=== PATIENT | female | born 1980 | race Caucasian/White ===

== ENCOUNTER 2018-07-05 13:41 | Inpatient (IN) | payer BC ==
[2018-07-06] MEDS ORDERED: Zolpidem Tartrate 5 MG TAB PO PRN (22:10)
[2018-07-06] MEDS ORDERED: Lidocaine 1% (PF) 30 ML VIAL SC PRN ×2 (22:10→22:13)
[2018-07-06] MEDS ORDERED: NS / Oxytocin 40 units/1000ml 1,000 ML IV PRN ×2 (22:10→22:13)
[2018-07-06] MEDS ORDERED: Promethazine HCl 25 MG/ML VIAL IM PRN (22:10)
[2018-07-06] MEDS ORDERED: Butorphanol Tartrate 1 MG/ML VIAL SLOW IVP PRN (22:10)
[2018-07-06] MEDS ORDERED: Acetaminophen 500 MG TAB PO PRN (22:10)
[2018-07-06] MEDS ORDERED: Ondansetron PF 4 MG/2 ML Vial IVP PRN (22:10)
[2018-07-06] MEDS: Lactated Ringer's 1,000 ML IV SCH (22:30)
[2018-07-06] MEDS ORDERED: Penicillin G Potassium 5 MILL.UNITS in Sodium Chloride 0.9% 100 ML IVPB SCH (23:00)
[2018-07-06 23:15] VITALS: BMI 32.2
[2018-07-06 23:25] LABS: Hemoglobin 11.3 g/dL (12.0-16.0); Mean Corpuscular HGB CONC 34.9 g/dL (32.0-36.0); Mean Corpuscular Hemoglobin 31.6 pg (27.0-31.0); Mean Corpuscular Volume 90.3 fL (78.0-98.0); Mean Platelet Volume 9.5 fL (7.4-10.4); Platelet Count 151 thou/uL (130-400); RBC Distribution Width 12.5 % (11.5-14.5); Red Blood Cell (RBC) Count 3.58 mill/uL (4.20-5.40); White Blood Cell (WBC) Count 6.4 thou/uL (4.8-10.8)
[2018-07-07 00:04] LABS: Syphilis Antibody Nonreactive (Nonreactive); Syphilis Antibody Index 0.05 S/CO (<1.00 Non-Reactive)
[2018-07-07] MEDS: Misoprostol 100 MCG TAB VAG SCH ×2 (00:07→08:14)
[2018-07-07 00:08] LABS: HBSAg Index 0.27 S/CO (0-0.99); Hep B Surf Ag Non-Reactive S/CO (NonReactive)
[2018-07-07] MEDS: Penicillin G 2.5 MILL.units 2.5 MILL.UNITS in Premix Bag 1 BAG IVPB SCH ×5 (04:30→16:10)
[2018-07-07] MEDS: NS w/ Oxytocin 10 units 500 ML IV SCH (06:00)
[2018-07-07] MEDS: Lactated Ringer's 1,000 ML IV SCH ×2 (06:01→12:16)
[2018-07-07] MEDS ORDERED: Fentanyl 4 mcg/Bup 0.1% Cadd 100 ML ONE ×2 (07:38→15:06)
[2018-07-07] MEDS ORDERED: ePHEDrine/0.9% NaCl/PF SYRINGE 50 mg/10 ml SLOW IVP PRN (08:11)
[2018-07-07] MEDS ORDERED: Eucerin (Mineral Oil/Petrolatum,White) 30 gm Jar TOP PRN ×2 (08:11→20:17)
[2018-07-07] MEDS ORDERED: Lactated Ringer's 500 ML IV PRN (08:11)
[2018-07-07] MEDS ORDERED: diphenhydrAMINE 50 MG/ML VIAL IVP PRN ×2 (08:11→20:17)
[2018-07-07] MEDS ORDERED: Naloxone HCl 0.4 mg/ml Vial IVP PRN ×4 (08:11→20:17)
[2018-07-07] MEDS ORDERED: Promethazine HCl 25 MG/ML VIAL IM PRN ×2 (08:11→20:17)
[2018-07-07] MEDS ORDERED: Ondansetron PF 4 MG/2 ML Vial IVP PRN ×2 (08:11→20:17)
[2018-07-07] MEDS ORDERED: Acetaminophen 325 MG TAB PO PRN (08:11)
[2018-07-07] MEDS ORDERED: Fentanyl 4 mcg/Bupivacaine 0.1% Cassette 100 ML EPIDURAL SCH (08:15)
[2018-07-07] MEDS ORDERED: Communication Order-Pharmacy FS SCH ×2 (08:15→20:30)
[2018-07-07] MEDS ORDERED: Ondansetron PF 4 MG/2 ML Vial ONE ×2 (14:08→19:47)
[2018-07-07] MEDS ORDERED: Lidocaine 2% PF 5 ML VIAL ONE (14:08)
[2018-07-07] MEDS ORDERED: Bicitra 30 ML UDCUP ONE (19:10)
[2018-07-07] MEDS ORDERED: Azithromycin 500 MG VIAL ONE (19:11)
--- NOTE | 2018-07-07 19:11 | PDOC.LDPN ---
Labor & Delivery Progress Note - Subjective Subjective: comfortable - Objective Uterine fundus: palpable contractions SVE: 6 Effacement: 75% Station: 0 FHT: category 1 Festus contractions every: 2 to 3 minutes. >240-300 MVU's AROM: clear fluid IUPC placed: yes -: Failure to progress at 6 cm over 4 hours despite adequate contractions. ROP presentation noted. Plan for primary section.
[2018-07-07] MEDS ORDERED: HYDROcodone/Acetaminophen 5/325 mg Tablet PO PRN (19:12)
[2018-07-07] MEDS ORDERED: Lanolin Ointment 7 GM TUBE TOP PRN (19:12)
[2018-07-07] MEDS ORDERED: Misoprostol 200 MCG TAB PR PRN (19:12)
[2018-07-07] MEDS ORDERED: Bisacodyl 10 MG SUPP PR PRN (19:12)
[2018-07-07] MEDS ORDERED: Simethicone Chewable 80 MG TAB PO PRN (19:12)
[2018-07-07] MEDS ORDERED: diphenhydrAMINE 25 MG CAP PO PRN (19:12)
[2018-07-07] MEDS ORDERED: Bicitra 30 ML UDCUP PO SCH (19:15)
[2018-07-07] MEDS ORDERED: NS / Oxytocin 40 units/1000ml 1,000 ML IV SCH (19:15)
[2018-07-07] MEDS ORDERED: Lidocaine 2% MPF 10 ML AMP (For Epidural Use) ONE (19:28)
[2018-07-07] MEDS ORDERED: Oxytocin 10 UNITS/ML VIAL ONE (19:28)
[2018-07-07] MEDS ORDERED: MORPHINE 5 MG/10 ML PF VIAL ONE (20:14)
[2018-07-07] MEDS ORDERED: Naloxone HCl 0.4 mg/ml Vial IV PRN (20:17)
[2018-07-07] MEDS ORDERED: HYDROmorphone 2 MG/ML VIAL SLOW IVP PRN (20:17)
[2018-07-07] MEDS ORDERED: Promethazine HCl 25 MG SUPP PR PRN (20:17)
[2018-07-07] MEDS ORDERED: L&D-Morphine 4 MG/ML VIAL SLOW IVP PRN (20:17)
[2018-07-07] MEDS ORDERED: Ondansetron HCl/PF 4 MG/2 ML Vial IVP PRN (20:17)
[2018-07-07] MEDS ORDERED: Ketorolac Tromethamine 30 MG/ML VIAL IVP PRN (20:17)
[2018-07-07] MEDS ORDERED: Ketorolac Tromethamine 30 MG/ML VIAL IVP SCH (20:30)
[2018-07-07] MEDS ORDERED: Meperidine HCl/PF 25 MG/ML VIAL ONE ×2 (21:09→21:52)
[2018-07-07] MEDS: Meperidine HCl/PF 25 MG/ML VIAL SLOW IVP PRN ×2 (21:10→21:52)
[2018-07-07] MEDS ORDERED: hydrALAZINE 20 MG/ML VIAL ONE (21:29)
[2018-07-07] MEDS ORDERED: hydrALAZINE 20 MG/ML VIAL SLOW IVP PRN (21:31)
--- NOTE | 2018-07-08 01:47 | OP ---
DATE OF PROCEDURE: 07/07/2018 PRIMARY OB: Rina Sutton MD The patient is a 38-year-old female who underwent a primary for failure to progress. I functioned as first breaker feeder and with Dr. Rina Sutton as primary surgeon. Please refer to her operative note for complete details. Job ID: [id number]
--- NOTE | 2018-07-08 02:55 | OP ---
DATE OF PROCEDURE: 07/07/2018 PREOPERATIVE DIAGNOSES: 1. A 38-year-old white female, G2, P1, who is at 41 weeks gestation. 2. Status post labor induction. 3. Failure to progress at 6 cm. 4. Occiput posterior presentation. POSTOPERATIVE DIAGNOSES: 1. A 38-year-old white female, G2, P1, who is at 41 weeks gestation. 2. Status post labor induction. 3. Failure to progress at 6 cm. 4. Occiput posterior presentation. PROCEDURE PERFORMED: Primary low transverse section without extension. SURGEON: Rajiv Snyder MD ANESTHESIA: Epidural. ESTIMATED BLOOD LOSS: 300 mL. COUNTS: Correct x2. ANTIBIOTICS: 2 g Ancef, on-call to OR along with Zithromax 500 mg. FINDINGS: 1. Female infant, occiput posterior presentation, Apgars 9 and 9 with weight 6 pounds 12 ounces. 2. Normal fallopian tubes, ovaries, and uterus. 3. Clear urine present in Byrnes catheter postprocedure. DISPOSITION: Recovery room, stable. DESCRIPTION OF PROCEDURE: The patient was taken back to the operating room after informed consent had been given. She had been at 6 cm despite adequate contraction . She was taken to the operative suite, where she was placed in supine position and Byrnes catheter was noted to be functioning along with SCDs were placed. She was prepped and draped in usual sterile fashion. A Pfannenstiel incision was made in the lower abdomen was carried down the fascia. The fascia was nicked in the midline. Fascial incision was extended bilaterally with the use of curved Alvarez scissors. The rectus fascia was dissected sharply and bluntly from the rectus muscle bellies. The rectus muscle bellies were then divided in the midline. The peritoneal cavity was entered. A large Yobany O retractor was placed. Bladder flap was created in usual fashion. A 2 cm hysterotomy incision was made in the lower uterine segment. This was extended via finger fractionation. The baby was delivered in the occiput posterior presentation. A nuchal cord x1 was noted. Mouth and nares of the infant were bulb suctioned on the abdomen. The cord was doubly clamped and cut and handed to the pediatric nurse in attendance. Usual cord blood was obtained. The placenta was manually extracted and uterus was externalized and curetted of any remaining placental fragments with a dry laparotomy sponge. The uterus was then returned back into the abdomen. The hysterotomy incision was then closed in a running locking fashion with #1 Monocryl with good hemostasis. The pelvis was irrigated and noted to be hemostatic. The hysterotomy incision again was noted to be hemostatic. The Yobany O retractor was removed and again the hysterotomy incision was inspected and hemostasis was confirmed. The rectus muscle bellies were then noted to be hemostatic prior to fascial closure. The fascia was closed with 0 PDS suture x2 in running continuous fashion. Subcutaneous tissue was irrigated and noted to be hemostatic prior to skin approximation with bib. Surgery was terminated. There were no anesthetic or surgical complications. Job ID: [id number]
[2018-07-08] MEDS: Docusate Calcium (SURFAK) 240 MG CAP PO SCH ×3 (06:07→21:52)
[2018-07-08] MEDS: Ferrous Sulfate 325 MG TAB PO SCH ×3 (06:08→21:59)
[2018-07-08] MEDS: Ibuprofen 800 MG TAB PO SCH ×4 (06:09→21:52)
[2018-07-08] MEDS: NS w/ Oxytocin 10 units 500 ML IV SCH ×2 (06:09→22:00)
[2018-07-08 06:11] LABS: Hemoglobin 11.5 g/dL (12.0-16.0); Mean Corpuscular HGB CONC 34.6 g/dL (32.0-36.0); Mean Corpuscular Hemoglobin 31.1 pg (27.0-31.0); Mean Corpuscular Volume 89.9 fL (78.0-98.0); Mean Platelet Volume 9.4 fL (7.4-10.4); Platelet Count 139 thou/uL (130-400); RBC Distribution Width 12.4 % (11.5-14.5); Red Blood Cell (RBC) Count 3.69 mill/uL (4.20-5.40); White Blood Cell (WBC) Count 12.9 thou/uL (4.8-10.8)
[2018-07-08] MEDS: Lactated Ringer's 1,000 ML IV SCH ×3 (07:02→22:00)
--- NOTE | 2018-07-08 08:03 | PDOC.PP ---
Post Progress Note Post Day #: 1 PO intake tolerated: yes Flatus: yes Ambulation: yes Vital Signs (12 hours) Temp Pulse Resp BP Pulse Ox 07/08/18 02:15 73 123/82 97 07/08/18 00:35 71 16 140/84 98 07/07/18 23:00 98.2 F 75 16 153/81 H 98 07/07/18 21:30 92 Weight Weight 182 lb - Physical Examination Abdominal: + bowel sounds, lochia, no distention, appropriately TTP Result Diagrams: 07/08/18 05:48 Additional Labs: Post Labs Blood Type O POSITIVE 07/06/18 23:16 Hep Bs Antigen Non-Reactive S/CO (NonReactive) 07/06/18 23:16 - Assessment/Plan post op day 1 from primary c/s for failure to progress. Blood pressures normalized.Routine care.
[2018-07-08] MEDS ORDERED: Adacel (T-DAP) 0.5 ML SYRINGE IM ONE (09:00)
[2018-07-08] MEDS: Prenatal Vitamin 1 TAB PO SCH (10:09)
[2018-07-08] MEDS: Misoprostol 100 MCG TAB VAG SCH (10:10)
[2018-07-08] MEDS: Penicillin G 2.5 MILL.units 2.5 MILL.UNITS in Premix Bag 1 BAG IVPB SCH (10:10)
[2018-07-08] MEDS ORDERED: Lidocaine 2% MPF 10 ML AMP (For Epidural Use) ONE (18:00)
[2018-07-08] MEDS ORDERED: Bupivacaine/Epinephrine 0.25% 30 ML VIAL ONE (18:00)
[2018-07-08] MEDS: HYDROcodone/Acetaminophen 5/325 mg Tablet PO PRN (21:56)
[2018-07-09] MEDS: Lactated Ringer's 1,000 ML IV SCH ×2 (00:05→13:41)
[2018-07-09] MEDS: Ibuprofen 800 MG TAB PO SCH ×3 (05:54→21:16)
[2018-07-09] MEDS: HYDROcodone/Acetaminophen 5/325 mg Tablet PO PRN ×5 (05:55→22:28)
--- NOTE | 2018-07-09 08:02 | PDOC.PP ---
Post Progress Note Post Day #: 2 PO intake tolerated: yes Flatus: yes Ambulation: yes Vital Signs (12 hours) Temp Pulse Resp BP Pulse Ox 07/09/18 07:50 97.7 F 82 20 130/89 97 07/09/18 03:48 97.8 F 70 16 123/84 07/08/18 23:36 97.8 F 80 18 116/74 Weight Weight 182 lb - Physical Examination Abdominal: + bowel sounds, no distention, appropriately TTP Result Diagrams: 07/08/18 05:48 Additional Labs: Post Labs Blood Type O POSITIVE 07/06/18 23:16 Hep Bs Antigen Non-Reactive S/CO (NonReactive) 07/06/18 23:16 - Assessment/Plan Post op day 1-2..Doing well. D/c in AM. Routine care.
[2018-07-09] MEDS: Ferrous Sulfate 325 MG TAB PO SCH (08:42)
[2018-07-09] MEDS: Prenatal Vitamin 1 TAB PO SCH (08:58)
[2018-07-09] MEDS: Docusate Calcium (SURFAK) 240 MG CAP PO SCH ×2 (08:58→21:16)
[2018-07-10] MEDS: Ferrous Sulfate 325 MG TAB PO SCH ×2 (02:14→09:02)
[2018-07-10] MEDS: NS w/ Oxytocin 10 units 500 ML IV SCH (02:15)
[2018-07-10] MEDS: Lactated Ringer's 1,000 ML IV SCH ×2 (02:15→08:50)
[2018-07-10] MEDS: Ibuprofen 800 MG TAB PO SCH (06:05)
[2018-07-10] MEDS: HYDROcodone/Acetaminophen 5/325 mg Tablet PO PRN ×2 (06:06→10:11)
[2018-07-10 07:48] VITALS: BP 136/87; TEMP 97.6
[2018-07-10] MEDS: Docusate Calcium (SURFAK) 240 MG CAP PO SCH (09:03)
[2018-07-10] MEDS: Prenatal Vitamin 1 TAB PO SCH (09:03)
--- NOTE | 2018-07-10 09:03 | PDOC.PP ---
Post Progress Note Post Day #: 3 PO intake tolerated: yes Flatus: yes Ambulation: yes Vital Signs (12 hours) Temp Pulse Resp BP BP Pulse Ox 07/10/18 07:48 97.6 F 89 20 136/87 97 07/10/18 00:00 97.8 F 84 18 123/75 Weight Weight 182 lb - Physical Examination Abdominal: + bowel sounds, no distention, appropriately TTP Result Diagrams: 07/08/18 05:48 Additional Labs: Post Labs Blood Type O POSITIVE 07/06/18 23:16 Hep Bs Antigen Non-Reactive S/CO (NonReactive) 07/06/18 23:16 - Assessment/Plan Post op day 3. Doing well. D/c home. Follow up pod 7 staple removal and 6 weeks.
== END 2018-07-10 12:10 | disposition home or self-care (01) | DRG 788 ==
LOC: EDSTATUS 15:29 → L&D 07-06 22:45 → 3SW 07-07 22:55
PROVIDERS: ADMIT Obstetrics & Gynecology; ATTEND Obstetrics & Gynecology
PROC: 3E0P7VZ Introduction of Hormone into Female Reproductive, Via Natural or Artificial Opening (ICD-10-PCS; principal; 2018-07-06)
PROC: 10D00Z1 Extraction of Products of Conception, Low, Open Approach (ICD-10-PCS; 2018-07-06)
PROC: 3E033VJ Introduction of Other Hormone into Peripheral Vein, Percutaneous Approach (ICD-10-PCS; 2018-07-06)
PROC: 10907ZC Drainage of Amniotic Fluid, Therapeutic from Products of Conception, Via Natural or Artificial Opening (ICD-10-PCS; 2018-07-06)
DX: O62.0 Primary inadequate contractions (principal); O61.0 Failed medical induction of labor; Z3A.41 41 weeks gestation of pregnancy; Z37.0 Single live birth
CPT/HCPCS: 36415; 51702; 85027; 86780; 86850; 86900; 86901; 87340; J0360; J0456; J0690; J1885; J2001; J2175; J2270; J2405; J2540; J2590; J3490